=== PATIENT | male | born 1950 | race Two or more races ===

== ENCOUNTER → 2020-03-22 | Day surgery (SDC) | payer MEDICARE, MEDICAID ==
[~2020-03-22] VITALS: Ht 167.6 cm; Wt 80.7 kg
[2020-03-22] VITALS (16 sets, daily range): BP systolic 118–153; BP diastolic 55–65
[~2020-03-22] MED LIST: ASPIRIN81 MG ORAL; ATORVASTATIN CA80 MG ORAL; Acetaminophen 500mg (ES) tab ORAL SCH; Bacitracin 50000 Units Vial ONE; Bupivacaine 0.25% Inj 30ml INJ ONE; CARVEDILOL12.5 MG ORAL; CATAPRES0.1 MG ORAL; CLOPIDOGREL75 MG ORAL; FLOMAX0.4 MG ORAL; Gelfoam Size TOPIC ONE; HUMALOG100 UNIT/4 SUBQ; HYDRALAZINE HCL50 MG ORAL; Heparin 5000 units/ml inj ONE; Heparin Sod 1000 units/ml 10ml ONE; Hydromorphone 0.5mg/0.5ml inj IVP PRN; Isovue-M 300 15ml INJ ONE; LANTUS SOL100 UNIT/1 SUBQ; LISINOPRIL2.5 MG ORAL; LR 1000ml ONE; Lidocaine 1% MPF 10mg/ml 5ml ONE; Lidocaine 1% Plain 30 ml INJ ONE; NORVASC5 MG ORAL; NS Irrig 1000ml IRRIG ONE; NeoSporin Gu Irrig 1ml Amp IRRIG ONE; Sodium Chloride 10ml vial INJ ONE; Sterile Water Irrig 1000ml IRRIG ONE; Thrombin 5000 units TOPIC ONE; VITAMIN D325 MC1 PO; ePHEDrine 50mg/ml Inj ONE; fentaNYL 100 mcg/2 mL IV ONE
--- NOTE | 2020-03-22 12:23 | Pre-Procedure Note/Attestation ---
Pre-Procedure Note/Attestation Complete Prior to Procedure Planned Procedure: left Procedure Narrative: Left arm arteriovenous fistula Indications for Procedure Pre-Operative Diagnosis: ESRD Attestation I attest that I discussed the nature of the procedure; its benefits; risks and complications; and alternatives (and the risks and benefits of such alternatives), prior to the procedure, with the patient (or the patient's legal branch sales and service representative). I attest that, if there was a reasonable possibility of needing a blood transfusion, the patient (or the patient's legal branch sales and service representative) was given the [facility] standardized written summary, pursuant to the [employer] [place] [employer] Blood Safety Act ([place] Health and Safety Code # 1645, as amended). I attest that I re-evaluated the patient just prior to the surgery and that there has been no change in the patient's H&P, except as documented below: Lawrence Sweet MD Mar 22, 2020 12:23
--- NOTE | 2020-03-22 13:11 | Anethesia Preoperative Eval ---
Anesthesia Pre-op PMH/ROS General Date of Evaluation: Mar 22, 2020 Time of Evaluation: 12:02 Anesthesiologist: Vidal ASA Score: ASA 3 Mallampati Score Class I : Soft palate, uvula, fauces, pillars visible Class II: Soft palate, uvula, fauces visible Class III: Soft palate, base of uvula visible Class IV: Only hard plate visible Mallampati Classification: Class II Surgeon: Kee Diagnosis: ESRD Surgical Procedure: Dialysis access Anesthesia History: none Family History: no anesthesia problems Allergies: Coded Allergies: No Known Allergies (Unverified , 03/22/20) Medications: see eMAR Patient NPO?: Yes Past Medical History Cardiovascular: Reports: HTN, CAD - h/o [place] s/p CABG, stable, [place] - h/o, arrhythmia - jesus on b-blockers; Denies: valve dz, other Pulmonary: Denies: asthma, COPD, ISIAH, other Gastrointestinal/Genitourinary: Reports: GERD, ESRD - on HD; Denies: CRI, other Neurologic/Psychiatric: Reports: depression/anxiety; Denies: dementia, CVA, TIA, other Endocrine: Reports: DM - on insulin; Denies: hypothyroidism, steroids, other HEENT: Reports: cataract (L), cataract (R) - s/p bilateral Sx; Denies: glaucoma, [place] (L), [place] (R), other Hematology/Immune: Reports: anemia - of chronic d-s; Denies: DVT, bleeding disorder, other Musculoskeletal/Integumentary: Reports: OA; Denies: RA, DJD, DDD, edema, other PMH Narrative: as above PSxH Narrative: CABG dialysis catheter placement Anesthesia Pre-op Phys. Exam Physician Exam Last Vital Signs Date Time Temp Pulse Resp B/P (MAP) Pulse Ox O2 Delivery O2 Flow Rate FiO2 03/22/20 09:16 97.5 59 18 118/59 96 Room Air Constitutional: NAD Neurologic: CN 2-12 intact Cardiovascular: RRR, no M/R/G Respiratory: CTA Gastrointestinal: S/NT/ND Airway Exam Mallampati Score: Class II MO: limited Neck: stiff ROM: limited Teeth: missing Dentures: no upper, no lower Anesthesia Pre-op A/P Labs Chemistry Test 03/22/20 08:50 10/20/20 08:55 Potassium Level 4.9 MMOL/L (3.5-5.1) POC Whole Blood Glucose Pending Studies Pre-op Studies: EKG - SB, echo - EF 55% Risk Assessment & Plan Assessment: ASA 3 Plan: GA with LMA Status Change Before Surgery: No Pre-Antibiotics Drug: Ancef 1gr. Given Within 1 Hr of Incision: Yes Time Given: 12:55 Joe Drake MD Mar 22, 2020 13:11
--- NOTE | 2020-03-22 14:02 | Operative Note - PDOC ---
Operative Note Operative Note Pre-op Diagnosis: ESRD Procedure: Left arm avf (brachial artery to cephalic vein) Post-op Diagnosis: ESRD Post-op Diagnosis: same as pre-op Surgeon: Lawrence Sweet MD Anesthesiologist: Chary ESCOBEDO Anesthesia: general Specimen: none Complications: none Condition: stable Estimated Blood Loss: minimal - less than 10 cc Drains: none Implant(s) used?: No Lawrence Sweet MD Mar 22, 2020 14:02
--- NOTE | 2020-03-22 14:15 | Immediate Post-Op Evaluation ---
Immediate Post-Op Evalulation Immediate Post-Op Evalulation Procedure: L arm creation of A-V fistula Date of Evaluation: Mar 22, 2020 Time of Evaluation: 14:13 IV Fluids: 750 Blood Products: none Estimated Blood Loss: <50 Urinary Output: none Blood Pressure Systolic: 142 Blood Pressure Diastolic: 76 Pulse Rate: 68 Respiratory Rate: 18 O2 Sat by Pulse Oximetry: 99 Temperature (Fahrenheit): 97.6 Pain Score (1-10): 1 Nausea: No Vomiting: No Complications none Patient Status: reacts, patent, none Hydration Status: adequate Joe Drake MD Mar 22, 2020 14:15
--- NOTE | 2020-03-22 15:08 | 48 Hour Post Anesthesia Eval ---
Post Anesthesia Evaluation Procedure: L arm creation of A-V fistula Date of Evaluation: Mar 22, 2020 Time of Evaluation: 15:06 Blood Pressure Systolic: 146 0: 62 Pulse Rate: 58 Respiratory Rate: 18 Temperature (Fahrenheit): 97.8 O2 Sat by Pulse Oximetry: 97 Airway: patent Nausea: No Vomiting: No Pain Intensity: 1 Hydration Status: adequate Cardiopulmonary Status: stable Mental Status/LOC: patient returned to baseline Follow-up Care/Observations: n/a Post-Anesthesia Complications: none Follow-up care needed: ready to discharge Joe Drake MD Mar 22, 2020 15:08
--- NOTE | 2020-03-24 21:15 | Consultation ---
DATE OF CONSULTATION: 03/22/2020 VASCULAR SURGERY CONSULTATION CONSULTING PHYSICIAN: Lawrence Sweet MD REFERRING PHYSICIAN: Kiko Garcia MD REASON FOR CONSULTATION: Access for hemodialysis. HISTORY OF PRESENT ILLNESS: This is a 70-year-old male who has a history of hypertension, coronary artery disease, coronary artery bypass, and end-stage renal failure, on hemodialysis through a right chest Perma catheter. Vascular Surgery is consulted for placement of AV shunt. Patient is right handed. He has no other complaints. He currently resides in a rehab, [facility]. He was been tested COVID negative. PAST MEDICAL HISTORY: As above. End-stage renal failure, on hemodialysis; hypertension; coronary artery disease; coronary artery bypass graft; right chest Perma catheter; COVID negative. MEDICATIONS: See attached MAR. ALLERGIES: No known drug allergies. SOCIAL HISTORY: Denies history of smoking, drugs, or alcohol abuse. FAMILY HISTORY: Unremarkable. SYSTEM REVIEW: CARDIOVASCULAR: No history of chest pain or palpitation. PULMONARY: No cough. No hemoptysis. GASTROINTESTINAL: No history of abdominal pain, constipation, or diarrhea. GENITOURINARY: No urinary symptoms, frequency, or hematuria. NEUROLOGICAL: No history of strokes or seizures PHYSICAL EXAMINATION: VITAL SIGNS: Patient is afebrile at 97, heart rate 80, blood pressure 150/70, respirations 16. NECK: Patient has palpable radial pulses. No evidence of carotid bruits. CHEST: He has a right chest Perma catheter. The site is clear and intact. LUNGS: Clear to auscultation. HEART: Regular rate and rhythm. ABDOMEN: Soft and nontender. EXTREMITIES: Palpable femoral pulses. Intact popliteal and pedal pulses bilaterally. IMPRESSION: 1. End-stage renal failure, on hemodialysis, requiring permanent access. 2. History of right chest Perma catheter. 3. History of coronary artery bypass graft. PLAN AND RECOMMENDATION: We will proceed with a left arm AV shunt placement. Vein mapping and Duplexes were reviewed. The above was discussed at length with the patient and consent was obtained. Lawrence Sweet M.D. DR: BECKA JOB#: [id number] CC:
--- NOTE | 2020-03-24 22:15 | Operative Note - Dictated ---
DATE OF OPERATION: 03/22/2020 SURGEON: Lawrence Sweet M.D. PREOPERATIVE DIAGNOSES: 1. End-stage renal failure, requiring permanent access for hemodialysis. 2. History of hypertension, right chest Perma catheter. 3. History of coronary artery disease, coronary artery bypass graft. POSTOPERATIVE DIAGNOSES: 1. End-stage renal failure, requiring permanent access for hemodialysis. 2. History of hypertension, right chest Perma catheter. 3. History of coronary artery disease, coronary artery bypass graft. PROCEDURES: 1. Placement of left antecubital brachial artery to cephalic vein arteriovenous fistula. 2. Exploration and dilatation of left cephalic vein. ANESTHESIA: Local with sedation. ANESTHESIOLOGIST: Joe Drake M.D. COMPLICATIONS: None. FINDINGS: Suitable left cephalic vein measuring about 3.5 mm to 4 mm in size with minimal plaque. . The patient had a strongly palpable thrill and radial pulse. The AV shunt had a palpable thrill. It would require 6 to 8 weeks of time for AVF maturation prior to AV shunt access use. INDICTION FOR PROCEDURE: This is a 70-year-old male who presented for evaluation and procedure. Risks and benefits were discussed and consent was obtained. DESCRIPTION OF PROCEDURE: The patient was brought to the procedure room. After a dose of antibiotics and sedation by the anesthesiologist, the left arm was prepped and draped in the usual sterile manner. Left transverse antecubital incision was made under sterile condition and local anesthesia. The cephalic vein was sharply dissected distally. This was divided using a 2-0 silk suture. The proximal cephalic vein was flushed with heparinized saline solution. Coronary dilator up to 3.5 was advanced without difficulty. The vein was marked anteriorly to avoid twisting. The vein was spatulated. Left brachial artery was sharply dissected. Proximal and distal double loop control was obtained. Arteriotomy was made after systemic heparinization. End-to-side anastomosis was carried out using a running 6-0 Prolene suture. Forward and backward flush was given. Anastomosis was completed. Flow was restored with a strongly palpable thrill and radial pulse. The wound was irrigated with antibiotic irrigation. Anastomosis remained hemostatic. The wound was closed using interrupted 2-0 and 3-0 Vicryl sutures. Skin was closed using 4-0 Monocryl subcuticular skin closure. Sterile dressing was applied. The patient tolerated the procedure very well. Lawrence Sweet M.D. DR: RADHA JOB#: [id number] CC:
== END | disposition home or self-care (01) ==
LOC: SUR 08:21
DX: I13.11 Hypertensive heart and chronic kidney disease without heart failure, with stage 5 chronic kidney disease, or end stage renal disease (principal); N18.6 End stage renal disease; E11.22 Type 2 diabetes mellitus with diabetic chronic kidney disease; Z99.2 Dependence on renal dialysis; Z95.1 Presence of aortocoronary bypass graft; I25.10 Atherosclerotic heart disease of native coronary artery without angina pectoris; I25.2 Old myocardial infarction; K21.9 Gastro-esophageal reflux disease without esophagitis; M19.90 Unspecified osteoarthritis, unspecified site; D63.1 Anemia in chronic kidney disease; Z79.4 Long term (current) use of insulin
CPT/HCPCS: 36415; 36821; 82962; 84132; 94003; J0690; J1644; J2001; J2704; J3010; J3490; J7120; 94150